=== PATIENT | female | born 1975 | race Caucasian/White ===

== ENCOUNTER 2018-10-30 09:37 | Emergency (ER) | payer OTHER, SELFPAY ==
[2018-10-30 09:47] VITALS: BP 122/77; PULSE 76; RESP 16; TEMP 37.7; O2SAT 99; BMI 31.6
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
[2018-10-30 10:38] VITALS: BP 108/66; PULSE 64; O2SAT 100
--- NOTE | 2018-10-30 11:10 | PC.NURSE ---
resp at bedside
[2018-10-30 11:19] VITALS: BP 119/65; PULSE 78; RESP 16; TEMP 36.6; O2SAT 99
== END 2018-10-30 11:21 | disposition home or self-care (01) ==
PROVIDERS: Emergency Provider Emergency Medicine; PCP Nurse Practitioner Family
DX: T59.811A Toxic effect of smoke, accidental (unintentional), initial encounter (principal); J70.5 Respiratory conditions due to smoke inhalation; Y92.69 Other specified industrial and construction area as the place of occurrence of the external cause; Z88.0 Allergy status to penicillin
CPT/HCPCS: 71046; 82375; 99283